=== PATIENT | male | born 1955 | race Caucasian/White ===

== ENCOUNTER 2016-06-30 14:43 | Inpatient (IN) | payer OTHER ==
[~2016-06-30] VITALS: Ht 177.8 cm; Wt 81.7 kg
[2016-06-30 15:45] VITALS: PULSE 55
[2016-06-30 15:52] VITALS: BP 135/83; PULSE 56; RESP 18; O2SAT 100
[2016-06-30] MEDS ORDERED: OMEG-38 PO (16:02)
[2016-06-30] MEDS ORDERED: GABA600T PO (16:02)
[2016-06-30] MEDS ORDERED: BUPR150T12 PO (16:02)
[2016-06-30] MEDS ORDERED: MULT1CAP33 PO (16:02)
[2016-06-30 16:51] VITALS: PULSE 56
[2016-06-30] MEDS ORDERED: Ondansetron 2 mg/mL 2 mL Inj IVPUSH PRN (16:55)
[2016-06-30] MEDS ORDERED: Polyethylene Glycol (PEG) 17 Gm Powder PO PRN (16:55)
[2016-06-30] MEDS ORDERED: Alum-Mag Hydrox-Simeth 30 mL Suspension PO PRN (16:55)
[2016-06-30] MEDS ORDERED: Heparin 25K Unit/500mL 0.45 NS 25,000 UNIT in IV Premix 1 EACH IV SCH (17:05)
[2016-06-30] MEDS ORDERED: Heparin 5,000 Unit/mL Inj IVPUSH PRN (17:05)
--- NOTE | 2016-06-30 17:45 | PCM.HPMED ---
Subjective Date of Service Jun 30, 2016 Primary Provider: Admitting Physician: Jennifer Bañuelos DO Primary Care Physician: Clem Cali MD Attending Physician: Jennifer Bañuelos DO Chief Complaint: NSTEMI Left arm pain History of Present Illness: Mr. Mckee is a pleasant 61-year-old gentleman who was transferred to [facility] from [facility] emergency department for further evaluation and treatment for NSTEMI. Patient says that at roughly 8 AM this morning his left arm started to ache, describing it as a muscle ache that increased in intensity, and did not go away with movement or self massage. He contacted EMS, they applied a nitroglycerin spray, which he says did not particularly help. He was given 4 baby aspirin, and taken to [facility] emergency room where he was found to have an elevated troponin without EKG changes. He denies any shortness of breath, lightheadedness, dizziness, or any pain over his chest or precordium. There is no tenderness in his arm, nor is there any tenderness in his chest. He has not had any nausea or vomiting, no diaphoresis. He does not notice color changes in his left arm. No fevers no recent illnesses, has not had any change in his normal activity, he did start taking Adderall couple of days ago which is a new medication for him, he did not take any today. This was prescribed to him to help his concentration after he had cryptococcal meningitis in the . On admission to [facility], he is asymptomatic, denies any pain. He works for [employer], since he leads an active life, used to be an avid runner, and now does works on a [employer] for exercise. He is a nonsmoker, weekly alcohol drinker, and denies any recreational drug use. He has been told in the past that he has "high lipids, but they are in good ratio "he tried Lipitor sometime in the s but caused him to have shortness of breath and has not been placed on any statins since. According to [facility] emergency department documentation EKG bradycardia, Q waves in lead 3, no other ST changes appreciated. Rate of 57 , CA 208, QRS 93, QTC 415. Infrequent PACs., Repeat EKG did not show substantial change. CMP: Blood glucose 103, creatinine 0.8, BUN 19, bicarbonate 30. Electrolytes normal. Liver enzymes normal, creatinine kinase normal. Initial troponin was negative, on recheck was elevated at 0.116 two hours later. CBC is unremarkable. Review of Systems: Comprehensive ROS negative unless stated in history of present illness Allergies Coded Allergies: diphenhydramine (Verified Allergy, Unknown, 06/30/16) hydroxyzine (Verified Allergy, Unknown, 06/30/16) Home Medications Multivitamin daily Suboxone 8 mg/2 mg 1-1/2 tab every day by mouth Ascorbic acid 500 mg by mouth twice a day Methocarbamol 750 mg up to 4 times a day as needed for muscle spasms by mouth Promethazine 25 mg by mouth every 6 hours as needed for nausea and vomiting Gabapentin 300 mg by mouth 3 times a day Cyclobenzaprine 10 mg by mouth 4 times a day as needed Review of her Norethin 150 mg by mouth twice a day Dextroamphetamine/amphetamine 10 mg by mouth twice a day Oxycodone 5 mg by mouth up to 4 hours as needed for pain PMH Multiple herniated disc in lower back Spinal stenosis Chronic bilateral knee pain Cryptococcus meningitis 1992 Surgical History Multiple discectomies and microdiscectomies, most recent in July 2013 Intrathecal reservoir and tubing placed in 1992, intrathecal reservoir removed, tubing remains. Carpal tunnel surgery right wrist 1999 Family History Mother lived to be 99 years old, no reported medical problems Father "butterfly glioma" at age 67, other medical conditions included diabetes and possibly alcoholism. 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 HEENT: Normocephalic, atraumatic, EOMI grossly, mucous membranes moist, conjunctiva pink, neck is supple without rigidity. No JVD, oropharynx without signs of inflammation Cardiovascular: Regular rhythm, bradycardic, no clicks murmurs rubs, peripheral pulses 2/4 equal bilaterally upper and lower extremities Pulmonary: Clear to auscultation bilaterally, no W/R/R. Abdominal: Soft to palpation, bowel sounds present 4, no hepatosplenomegaly. Negative rebound. Extremities: No edema appreciated. No tenderness, asymmetry. No tenderness, discoloration, or asymmetry or loss of function to left upper extremity. Neuro: Neurologically grossly intact, strength is equal bilaterally upper and lower extremities. Extraocular muscles intact, cranial nerves II through XII intact. MSK: Gait is normal, able to move extremities on their own volition, strength 5 out of 5 equal bilaterally to upper and lower extremities. Lymphatics: Cervical, axillary, inguinal nodes without adenopathy. Lab and Diagnostics Labs In paper chart, pertinent labs mentioned in history of present illness X-Rays, CTs and MRIs 1 view chest x-ray performed at [facility] on 06/30/2016 Impression: No acute pulmonary process. Dictated by Cindy Orozco M.D. On 06/30/2016 at 9:41 AM 12-lead ECG Per emergency room documentation from [facility] "Sinus bradycardia, patient has a Q-wave in lead 3, no other ST changes appreciated. Rate is 57, CA is 206, QRS is 93 and QTC is 415. Patient does not appear to have a PAC. No prior EKGs available." Assessment & Plan Mr. Mckee 61-year-old male with history of cryptococcus meningitis, back pain , and a reported history of hyperlipidemia, who was transferred to [facility] from [facility] emergency department ,after being found to have positive troponin, for NSTEMI evaluation and treatment. 1. Acute non-STEMI, present on admission, treatment initiated -Elevated troponin 0.116 from initially negative troponin. EKG reports do not state ST changes, or signs of infarct or ischemia. -Rechecked troponin on admission remained elevated, but trending down. -4 baby aspirin given to patient prior to presentation -Start heparin drip -ASA 81mg Daily -Plavix 300mg NOW and 75mg daily starting tomorrow. -HOLD Atorvastatin due to concerns for anaphylaxis given history of "hard to breath" when previously administered. -HOLD beta-zehra therapy for bradycardia. -Nitroglycerin 0.4 mg SL q5min PRN x3, -Echocardiogram ordered for the AM. -Cardiology has seen patient and consulting. Possible PCI tomorrow following echo. -NPO after midnight. 2. Chronic back and knee pain, present on admission, active -Not currently complaining of being in any pain -Restart patient's home medications, gabapentin, methocarbamol and cyclobenzaprine. 3. History of cryptococcus meningitis, present on admission, stable -Hold Adderall 4. Chronic depression, present on admission, stable -Continue bupropion Medication reconciliation -Restart patient's home medications once available in [facility] except those being held mentioned above. GI prophylaxis not indicated Pain management nitroglycerin, Tylenol, as needed, patient's home pain medications DVT prophylaxis: Heparin/Plavix/aspirin Inpatient status for anticipated length of stay greater than 2 midnights given acuity, complexity, and potential need for specialist intervention. Pain Evaluation: Adequate Pain Control GI Prophylaxis: Not indicated VTE Prophylaxis: Other (Heparin, clopidogrel) Resuscitation Status: CPR: Attempt Resuscitation Time spent 45 minutes Attending Statement The patient was seen and examined together with Dr. Guerra on 06/30/16 and I agree with the history, exam and plan as outlined in the note above. Toni Guerra DO Jun 30, 2016 17:45 Jennifer Bañuelos DO Jul 01, 2016 17:17
[2016-06-30 18:08] LABS: TROPONIN T 0.091 ug/L (0.0-0.011)
--- NOTE | 2016-06-30 18:11 | CONS ---
[address] [address] CONSULTATION REPORT PATIENT: SAMMY GAMING : 1955 MR#: [id number] ADMIT: 06/30/2016 JOB ID: [id number] DATE OF SERVICE: 06/30/2016 CHIEF COMPLAINT: I was asked by hospital team to consult on this patient given admission with [id number] [place]. HISTORY OF PRESENT ILLNESS: The patient is a 61-year-old man with past medical history significant for chronic back pain, also history of cryptococcal meningitis in 1992, who started to notice left arm aching this morning. This persisted and moved up to his shoulder area. It was not associated with chest pain, chest pressure, increased shortness of breath, diaphoresis, nausea, or vomiting. However, he decided to go to the ER. His initial troponin was negative. The second one has now come up positive. He did not have any acute EKG changes, and he is actually pain free at this time after a dose of morphine that was given to him about two or three hours ago. Prior to this, he is very active and exercises regularly. Denies any problems with chest pain, chest pressure, increased shortness of breath, arm pain, neck pain, or jaw pain. He denies any fevers, any history of orthopnea, PND, or lower extremity edema. PAST MEDICAL HISTORY AND PROBLEM LIST: 1. Cryptococcal meningitis in 1992 with some residual issues with focusing on projects. 2. Chronic back pain. 3. Knee pain. MEDICATIONS: At time of admission include: 1. MultiVites. 2. Suboxone. 3. Robaxin. 4. Promethazine. 5. Gabapentin. 6. Bupropion. 7. He has also started on Adderall about three weeks ago. 8. Oxycodone. ALLERGIES: 1. BENADRYL which makes him feel somewhat hyperkinetic, cannot stop moving. 2. HYDROXYZINE. SOCIAL HISTORY: No tobacco. Occasional alcohol. FAMILY HISTORY: No family history of early coronary disease. Brother has a pacemaker. Brother is older than him. REVIEW OF SYSTEMS: Overall health: No fevers, chills, night sweats, or weight loss. GI: No problems with ulcers or blood in his stool. : No dysuria, no hematuria. Pulmonary: No increased shortness of breath. Neuro: No history of chronic headaches or stroke but history of cryptococcal meningitis with some issues with focusing on tasks. Heme: No easy bruising or bleeding. Derm: No rash or skin breakdown. Endocrine: No heat or cold intolerance. Cardiac: As per HPI. Psych: No acute issues. ENT: No difficulty swallowing. Psych: No acute issues. All other review of systems of 12 point review of systems are negative. PHYSICAL EXAMINATION: Blood pressure 135/83, heart rate 56. General: In no acute distress. Speaking in full sentences without pressured breath. Head and neck exam: Normocephalic, atraumatic. Neck: No obvious JV distention. No carotid bruits appreciated. Heart: Regular rate and rhythm without murmurs, gallops, rubs appreciated. Lungs clear to auscultation anteriorly. Back: CVA tenderness to palpation. Abdomen: Soft, nontender. Extremities: Warm. No appreciable edema. 1+ distal pulses. Skin without breakdown appreciated. Neurologic: Alert and oriented x3. Gait is not tested. Psych: Appropriate mood affect. ENT: Mucous membranes moist. No erythema in the oropharynx. Ophtho vision grossly intact. DIAGNOSTIC DATA: EKG to my review shows sinus bradycardia, although I cannot find a full EKG. Labs show a troponin which is elevated to 0.116 as noted before. He is not anemic. Creatinine is fine. IMPRESSION: The patient had episode of arm pain, now elevated troponin consistent with a dpe-HP-twadaziay myocardial infarction. He has no pain at this time. PLAN/RECOMMENDATIONS: 1. I put him on a heparin drip. Continue aspirin. Given his low heart rate, I think we would have to be careful adding beta zehra on him, but this would be added if he develops any tachyarrhythmias. 2. Will keep him n.p.o. after midnight. Get an echocardiogram in the morning. A consideration for cardiac catheterization sometime this weekend. I have discussed the risks and benefits of cardiac catheterization if we were to proceed with this procedure. He understands the risks and benefits. He has no contraindications to stenting. 45 minutes was spent reviewing the patient's records, speaking with an examining the patient as well as communicating with the hospital team SIERRA
[2016-06-30] MEDS ORDERED: DEXM10CP6 PO (18:12)
--- NOTE | 2016-06-30 18:23 | NUR ---
Admit note Patient admitted to 2000 from [facility]. Patient A/O x 4, amb indep in room, steady gait. Patient c/o mild left arm ache that does not radiate. VSS, tele SB 50's 1 AVB. Patient oriented to call light, tv, phone, bathroom and poc. Declined Influenza vaccine. Med rec and admit done. Heparin gtt started per MD orders. Will cont poc.
[2016-06-30 21:19] VITALS: BP 117/71; PULSE 50; RESP 16; O2SAT 98
[2016-06-30] MEDS: buPROPion SR 150 mg ER12 Tablet PO SCH (21:31)
[2016-06-30 23:09] VITALS: BP 114/77; PULSE 50; RESP 20; O2SAT 95
[2016-07-01] VITALS (14 sets, daily range): BP systolic 106–135; BP diastolic 60–79; PULSE 46–64; RESP 10–20; O2SAT 97–98
[2016-07-01 05:34] LABS: BASOPHILS % (AUTO) 0.3 % (0-3); EOSINOPHILS % (AUTO) 1.2 % (0-5); MONOCYTES % (AUTO) 9.3 % (4-12); Mean Corpuscular Hemoglobin 30.4 pg (27.0-35.0); Mean Corpuscular Volume 91.7 fL (81-100); NEUTROPHILS % (AUTO) 57.8 % (40-74); Platelet Count 215 bil/L (150-400)
[2016-07-01 06:01] LABS: Magnesium 2.2 mg/dL (1.6-2.6)
--- NOTE | 2016-07-01 07:26 | NUR ---
Pain/NPO Pt c/o left arm pain 3-07/10 at approximately 0100. STAT EKG was ordered for chest pain. MD was notified of this episode and visited with pt. Pt now has nitro PRN in the EMAR for chest pain. Pt has been NPO since midnight.
--- NOTE | 2016-07-01 07:53 | NUR ---
Social Work Note: Screen Note Data & Assessment: EMR reviewed. Patient is a 61 year old male admitted on 06/30/16 for NSTEMI. Pt has [facility] for insurance coverage and sees Clem Cali MD for primary care. Pt lives in [place] with family and is independent at baseline. Pt is currently independent in her room. No discharge needs identified at this time. SW to continue to follow if any needs arise. Plan: Anticipated discharge home via POV when medically ready. No discharge needs identified at this time. SW to continue to follow if any needs arise. Vane Douglas, LEONARDA, ACM
[2016-07-01] MEDS: 0.9% Sodium Chloride 1,000 ML IV SCH ×2 (09:45→17:30)
[2016-07-01] MEDS ORDERED: Phenylephrine/NS-PF 100 mCg/mL 5 mL Syringe IVPUSH ONE (09:59)
[2016-07-01] MEDS ORDERED: Atropine 1 mg/10 mL (Code) Syringe ONE (09:59)
[2016-07-01] MEDS ORDERED: Heparin 1,000 Unit/mL 10 mL Inj ONE (09:59)
[2016-07-01] MEDS ORDERED: Nitroglycerin 50,000 mcg/250 mL D5W Premix IV ONE (09:59)
[2016-07-01] MEDS ORDERED: 0.9% Sodium Chloride 2,000 ML ONE (10:00)
--- NOTE | 2016-07-01 10:33 | NUR ---
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 Echo done. VSS, tele SB 40-60's. 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
[2016-07-01] MEDS ORDERED: HYDROcodone-APAP 5-325 mg Tablet PO PRN (12:00)
[2016-07-01] MEDS ORDERED: Sodium Chloride LOK Flush 10 mL Syringe IVFLUSH PRN (12:00)
[2016-07-01] MEDS ORDERED: Atropine 1 mg/10 mL (Code) Syringe IVPUSH PRN (12:00)
[2016-07-01] MEDS ORDERED: 0.9% Sodium Chloride 250 ML BOLUS IV PRN (12:00)
[2016-07-01] MEDS ORDERED: 0.9% Sodium Chloride 400 ML (4 HRS) IV ONE (12:00)
[2016-07-01] MEDS ORDERED: Ondansetron 2 mg/mL 2 mL Inj IVPUSH PRN (12:00)
[2016-07-01] MEDS: buPROPion SR 150 mg ER12 Tablet PO SCH ×2 (14:00→21:17)
[2016-07-01] MEDS: Omega-3 Fatty Acids 1,000 mg Capsule PO SCH ×2 (14:01→21:17)
--- NOTE | 2016-07-01 15:19 | PCM.PNMED ---
Subjective Date of Service Jul 01, 2016 Subjective Overnight patient experienced a recurrence of left arm pain. Again described as muscle ache but did not go away. He was given an extra bolus of heparin which she said resolved the pain over the course of an hour. EKG taken at the time did not show any appreciable change from previous. At time of examination this morning he was once again completely asymptomatic. ROS mclean-negative Exam Vital Signs Vital Sign - Last Date Time Temp Pulse Resp B/P Pulse Ox O2 Delivery O2 Flow Rate FiO2 07/01/16 13:45 60 11 135/71 07/01/16 11:50 36.7 98 Room Air Intake and Output 06/30/16 06/30/16 07/01/16 Cumulative From/Thru 15:00 23:00 07:00 06/30/16 17:28 - 07/01/16 06:11 Intake Total 641 ml 641 ml Output Total 1850 ml 1850 ml Balance -1209 ml -1209 ml Intake Oral 400 ml 400 ml IV Total 241 ml 241 ml Output Urine Total 1850 ml 1850 ml # Voids 2 2 Exam General: Laying in bed, no apparent distress. HEENT: Normocephalic, atraumatic, EOMI grossly, mucous membranes moist, conjunctiva pink, neck is supple without rigidity. No JVD, oropharynx without signs of inflammation Cardiovascular: Regular rhythm, bradycardic, no clicks murmurs rubs, peripheral pulses 2/4 equal bilaterally upper and lower extremities Pulmonary: Clear to auscultation bilaterally, no W/R/R. Abdominal: Soft to palpation, bowel sounds present 4, no hepatosplenomegaly. Negative rebound. Extremities: No edema appreciated. No tenderness, asymmetry. No tenderness, discoloration, or asymmetry or loss of function to left upper extremity. Neuro: Neurologically grossly intact, strength is equal bilaterally upper and lower extremities. Extraocular muscles intact, cranial nerves II through XII intact. MSK: Gait is normal, able to move extremities on their own volition, strength 5 out of 5 equal bilaterally to upper and lower extremities. Lymphatics: Cervical, axillary, inguinal nodes without adenopathy. IVs and Medications Medications Reviewed: Medications were reviewed in detail Lab and Diagnostics Result Diagram: 07/01/1651907/01/16519 X-Rays, CTs and MRIs 1 view chest x-ray performed at [facility] on 06/30/2016 Impression: No acute pulmonary process. Dictated by Cindy Orozco M.D. On 06/30/2016 at 9:41 AM 12-lead ECG Per emergency room documentation from [facility] "Sinus bradycardia, patient has a Q-wave in lead 3, no other ST changes appreciated. Rate is 57, AR is 206, QRS is 93 and QTC is 415. Patient does not appear to have a PAC. No prior EKGs available." Cardiac Echo Impressions Complete echocardiogram performed 07/01/2016: Interpretation Summary 1. Normal left ventricular size, wall thickness and systolic function with an estimated EF of 55 to 60% 2. Upper limits of normal right ventricular size with normal systolic function. 3. No valvular pathology appreciated There is no old study for comparison Assessment & Plan Mr. Mckee 61-year-old male with history of cryptococcus meningitis, back pain , and a reported history of hyperlipidemia, who was transferred to [facility] from [facility] emergency department ,after being found to have positive troponin, for NSTEMI evaluation and treatment. 1. Acute non-STEMI, present on admission, ongoing -On admit Elevated troponin 0.116 from initially negative troponin. EKG tracings do not show ST changes, or signs of infarct or ischemia. -Rechecked troponin this a.m. and had increased daily 500% -Underwent catheterization:No abnormalities seen. -Echocardiogram:Normal. -ASA 81mg Daily -Plavix 300mg on admission and 75mg daily. -STOP heparin drip due to negative catheterization -HOLD Atorvastatin due to concerns for anaphylaxis given history of "hard to breath" when previously administered. -HOLD beta-zehra therapy for bradycardia. -Nitroglycerin 0.4 mg SL q5min PRN x3, -Heart healthy diet. NOT diabetic, A1c is normal. 2. Chronic back and knee pain, present on admission, active -Not currently complaining of being in any pain -Restart patient's home medications, gabapentin, methocarbamol and cyclobenzaprine. Tylenol as needed. 3. History of cryptococcus meningitis, present on admission, stable -Hold Adderall 4. Chronic depression, present on admission, stable -Continue bupropion GI prophylaxis not indicated Pain management nitroglycerin, Tylenol, as needed, patient's home pain medications DVT prophylaxis: Heparin/Plavix/aspirin Disposition: Postop rehabilitation tonight, continues to monitor for unstable angina, Likely discharge home tomorrow with follow-up for cardiology and with primary care doctor. No barriers to discharge, no additional foreseeable needs at discharge. Pain Evaluation: Adequate Pain Control GI Prophylaxis: Not indicated VTE Prophylaxis: Other (Heparin, clopidogrel) Resuscitation Status: CPR: Attempt Resuscitation Time spent 30 minutes Attending Statement The patient was seen and examined together with Dr. Guerra on 07/01/16 and I have added additional information to the note above. Toni Guerra DO Jul 01, 2016 15:19 Jennifer Bañuelos DO Jul 01, 2016 17:22
--- NOTE | 2016-07-01 16:13 | DRSVH ---
[facility] [address] [place] [address] Echocardiogram Report Name: SAMMY GAMING Gaudencio e: 07/01/2016 Height: 70 in Hospital Exam Location: [facility] Weight: 181 lb Gender: Male BSA: 2.0 m2 : 1955 Age: 61 yrs BP: 122/78 mmHg Reason For Study: NSTEMI Ordering Physician: HOSPITALIST [facility] Performed By: Lele Tatum Referring Physician: Paul STEWART Interpretation Summary 1. Normal left ventricular size, wall thickness and systolic function with an estimated EF of 55 to 60% 2. Upper limits of normal right ventricular size with normal systolic function. 3. No valvular pathology appreciated There is no old study for comparison Procedure: A two-dimensional transthoracic echocardiogram with color flow and Doppler was performed. The study quality was technically good. There is no prior echocardiogram noted for this patient. The patient was in normal sinus rhythm during the exam. Left Ventricle: The left ventricle is normal in size. There is normal left ventricular wall thickness. The ejection fraction is estimated to be 55-60%. Possible mild inferoapical hypokinesis. Right Ventricle: Borderline right ventricular enlargement. The right ventricular systolic function is normal. Atria: There is mild biatrial enlargement. No color doppler evidence for an ASD. Mitral Valve: The mitral valve is normal in structure and function. There is trace mitral regurgitation. Aortic Valve: The aortic valve is trileaflet. The aortic valve opens well. No aortic regurgitation is present. Tricuspid Valve: The tricuspid valve is normal in structure and function. There is mild tricuspid regurgitation. The right ventricular systolic pressure is estimated at 25 mmHg assuming a right atrial pressure of 3 mm Hg. Pulmonic Valve: The pulmonic valve is normal in structure and function. There is no pulmonic valvular regurgitation. Great Vessels: The aortic root is normal size. The dimensions of the ascending aorta are normal. The pulmonary artery is normal size. The IVC is of normal diameter and collapses greater than 50% with a sniff. This suggests a low right atrial pressure of 3 mm Hg. Pericardium/ Pleura There is no pericardial effusion. There is no pleural effusion. MMode/2D Measurements & Calculations LVIDd: 5.3 cm LA dimension: 3.3 cm RA long axis Ao root diam LVIDs: 3.7 cm FS: 29.9 % LA A2 area: 22.9 cm RA area Aortic Jxn: 2.5 cm EPSS: 0.33 cm LA A4 area: 20.5 cm asc Aorta Diam IVSd: 0.69 cm LA length (vol) : 19.9 cm LVPWd: 0.76 cm RA vol Ao Arch Diam (Prox LA vol: 72.9 ml : 68.9 ml Trans): 3.1 cm LA vol index RA : 34.4 mm2 IVC diam: 1.8 cm LV trevino. diameter/BSA LV sys. diameter/BSA RVD1 (basal) RVD2 (mid): 3.8 cm (cm/m^2): 2.7 (cm/m^2): 1.9 Doppler Measurements & Calculations MV E max anjel MV E/A: 1.2 TR max anjel MV dec time : 48.4 cm/sec Med Peak E' Anjel : 236.8 cm/sec : 0.21 sec MV A max anjel TR max PG : 38.9 cm/sec E/E' med: 6.7 : 22.4 mmHg Pulm A Revs Dur: 0.12 secPA V2 max MV A dur: 0.14 sec : 81.0 cm/sec PA mean PG PA Accel Time PA V2 mean Pulm A Revs Dur - MV A : 59.3 cm/sec Dur: -0.02 msec PA pr(Accel) : 26.6 mmHg Reading Physician:04:13 PM
--- NOTE | 2016-07-01 16:38 | NUR ---
Post cath Patient returned to the room at 1145, right groin site soft no bruising or hematoma. Bilat pedal pulses weak but palpable. VSS, tele SB 40-50's. Patient off bedrest at 1545, but has not been oob yet. Taking diet well. Will cont poc.
--- NOTE | 2016-07-01 17:27 | PCM.ADCARE ---
Advance Care Planning Note Purpose of Encounter: To understand the goals of care and patient's wishes for treatment Parties in Attendance: Jennifer Bañuelos DO Decisional Capacity: Good Subjective: Current Diagnosis: NSTEMI Plan: Patient's current diagnosis was discussed today with the patient. The patient currently would still like to be full code including CPR and mechanical ventilation. CODE STATUS: Full code Time Spent Adv.Care Plannin minutes Jennifer Bañuelos DO Jul 01, 2016 17:27
--- NOTE | 2016-07-01 18:29 | CS94 ---
[place] [id number] DIAGNOSTIC CARDIAC CATHETERIZATION PATIENT: SAMMY GAMING : 1955 MR#: [id number] ADMIT: 06/30/2016 JOB ID: [id number] SERVICE DATE: 07/01/2016 PROCEDURES PERFORMED: Left heart catheterization with coronary angiography. INDICATIONS: A 61-year-old man presents with [id number] ID. DESCRIPTION OF PROCEDURE: Informed consent was obtained. Patient brought to the label stamper. Bilateral groins were prepped and draped in usual fashion. The area over the right femoral artery was anesthetized with lidocaine. Using modified Seldinger technique, a 5-Gabonese sheath was advanced. Next, a 5-Gabonese JL4 catheter was advanced over a wire and used to cannulate the left coronary artery and angiographic views obtained. This catheter was removed over a wire and a 5-Gabonese JR4 catheter was advanced over a wire and used to cannulate the right coronary. Angiographic views view obtained. This catheter was removed and a 5-Gabonese angled pigtail catheter was advanced to the left ventricle under fluoroscopic guidance. Left ventricular pressure tracings were obtained and following pullback, aortic pressure tracings were obtained. The case was ended. Angiography of the right femoral access site was reviewed prior to achieving hemostasis with manual compression. There were no complications. FINDINGS: Coronaries: Left main. This has no significant plaque. There is a tortuous angulation prior to giving rise to the circumflex artery and the left anterior descending artery. The left anterior descending artery continues down, has significant tortuosity down and from the mid to the apical segment but has no evidence of obstructive disease. There is a diagonal branch which has a number of branches and supplies at least an intermediate distribution of the lateral wall. It has some mild ostial narrowing in the range of 20%. Circumflex artery: This vessel is also very tortuous in anatomy but there is no evidence for obstructive disease. It gives rise to a first obtuse marginal branch which is relatively small in caliber without obstructive lesions. The continuation of the circumflex artery also gives rise to two terminal branches, again without evidence of obstructive disease. Right coronary artery. This vessel has no evidence of obstructive disease. Its distal segments are also quite tortuous but there is no evidence for obstructive lesions appreciated. An ostial assessment shows no evidence of anomalous circumflex artery or ostial stenosis. Left ventricular pressure is 10 mm (post contrast, no gradient on pullback). IMPRESSION: 1. No evidence for obstructive coronary lesions to explain the patient's elevated troponin. 2. End-diastolic pressure 10 mm (post-contrast) and no gradient on pullback. MTDD
[2016-07-02 00:36] VITALS: BP 117/73; PULSE 53; RESP 16; O2SAT 97
[2016-07-02 03:04] VITALS: BP 105/65; PULSE 52; RESP 16; O2SAT 98
[2016-07-02 05:08] VITALS: PULSE 47
[2016-07-02] MEDS: 0.9% Sodium Chloride 1,000 ML IV SCH (05:45)
--- NOTE | 2016-07-02 06:25 | NUR ---
Groin Site Pt has been OOB with frequency. Pt's groin site remains soft and only slightly tender when palpated. Pt has pedal pulses bilaterally that are weak to palpation.
[2016-07-02 08:26] VITALS: BP 134/80; PULSE 56; RESP 16; O2SAT 100
[2016-07-02 08:27] VITALS: PULSE 53
[2016-07-02] MEDS: Omega-3 Fatty Acids 1,000 mg Capsule PO SCH (08:32)
[2016-07-02] MEDS: buPROPion SR 150 mg ER12 Tablet PO SCH (08:33)
[2016-07-02 08:49] VITALS: PULSE 53
[2016-07-02] MEDS ORDERED: CLOP75TA3 PO (10:43)
--- NOTE | 2016-07-02 10:48 | PCM.DIMED ---
Discharge Instructions Date of Service Jul 02, 2016 Dates of Hospitalization Jun 30, 2016 at 15:38 Discharge Diagnosis Discharge Diagnosis N STEMI Chronic back pain Chronic depression History of cryptococcus meningitis stable Medication Instructions He has been prescribed Plavix for the next 30 days because you had a cardiac catheterization. Please take Plavix daily and wants a prescription has run out he may not needed in the future but please follow-up with cardiology in regards to this. Diet Heart Healthy Activity Other (gradually return to normal daily activities. Please stay home today and tomorrow and to not return to work until July 04) Call your provider Fever or Chills, Shortness of breath, Chest pain, Weakness (unilateral) Patient Instructions Follow-up Provider: Clem Cali MD Follow-up with PCP in: 1 week (if an appointment has not already been made his call to schedule an appointment) Provider: Lynne Wolfe MD Follow-up in: 2 weeks (please follow up in 2-[address] Sparrow if you do not hear from her office please give them a call for follow-up appointment) Jennifer Bañuelos DO Jul 02, 2016 10:48
--- NOTE | 2016-07-02 12:24 | PROG NOTE ---
[address] [address] PROGRESS NOTE PATIENT: SAMMY GAMING : 1955 MR#: [id number] ADMIT: 06/30/2016 JOB ID: [id number] DATE: 07/02/2016 CHIEF COMPLAINT: The patient came in with a non STEMI. Cardiac catheterization did not reveal any obstructive lesions. Echocardiogram showed overall normal LV systolic function. Question of possible mild hypokinesis seen in the inferior apical segment, but this was only seen in limited views. SUBJECTIVE: He is doing well. He denies arm pain, chest pain, shortness of breath although he has not walked around the halls as yet. Telemetry shows no arrhythmias. In speaking with him further, he said he has been having quite a bit of stress with his job, which he is now transitioning out of. This may have been a source of his current problems. It is unclear. He has been on Adderall for at least three weeks, so I am not certain that this had anything to do with his current presentation. Current medications include Plavix 75 a day, aspirin 81 mg a day, bupropion 150 mg b.i.d., gabapentin 600 mg q.h.s. He should be off heparin. PHYSICAL EXAMINATION: Heart rate is in the high 40s to low 50s. Blood pressure 134/80. Sats 100% on room air. Afebrile. General: No acute distress. Speaking in full sentences without pressured breath. Head and neck exam: Normocephalic, atraumatic. Neck: No obvious JV distention. Heart: Regular rate and rhythm without murmurs, gallops, rubs appreciated. Lungs sound clear. Back: No CVA tenderness to palpation. Abdomen is soft. Extremities warm. Good distal pulses. LABORATORIES: Show an H and H of 14.2, 42.8. Chemistry is pending. HDL cholesterol 76, LDL 102. Echo as noted. IMPRESSION: The patient is status post cardiac catheterization for elevated troponin. No obstructive lesions were identified. This is felt then to be a microvascular phenomenon, a possible stress mediated cardiomyopathy although the LV function is normal, and only on one isolated view was there a possibility of apical inferior wall hypokinesis. He is doing well. No arrhythmias on telemetry. PLAN: 1. I have asked him to get around and walk around the halls, make sure he feels well without any chest pain, arm pain, other concerning symptoms. 2. I would continue on aspirin and Plavix for a month and I will see him within that time period. 3. He would like to return to work next week. If he feels well today, he could take Sunday off and go back to work as planned. The only restrictions would be heavy lifting for the next 4-5 days because of the groin access. 20 minutes was spent discussing the cath findings with the patient and examining him. I also communicated my recommendations to the hospital team KARLENED
--- NOTE | 2016-07-02 12:54 | PCM.DC.MED ---
Discharge Summary Date of Service Jul 02, 2016 Dates of Hospitalization Date of Hospital Admission Jun 30, 2016 at 15:38 Date of Discharge: Jul 02, 2016 Providers: Admitting Physician: Jennifer Bañuelos DO Primary Care Physician: Clem Cali MD Attending Physician: Jennifer Bañuelos DO Diagnosis at Time of Discharge Diagnosis at Time of Discharge N STEMI Chronic back pain Chronic depression History of cryptococcus meningitis stable Consultations Case and follow up plan was discussed in depth with Dr. Wolfe of Cardiology Procedures XRay, CTs & MRIs 1 view chest x-ray performed at [facility] on 06/30/2016 Impression: No acute pulmonary process. Dictated by Cindy Orozco M.D. On 06/30/2016 at 9:41 AM ECG 12 Lead Per emergency room documentation from [facility] "Sinus bradycardia, patient has a Q-wave in lead 3, no other ST changes appreciated. Rate is 57, CO is 206, QRS is 93 and QTC is 415. Patient does not appear to have a PAC. No prior EKGs available." Cardiac Echo Impression Complete echocardiogram performed 07/01/2016: Interpretation Summary 1. Normal left ventricular size, wall thickness and systolic function with an estimated EF of 55 to 60% 2. Upper limits of normal right ventricular size with normal systolic function. 3. No valvular pathology appreciated There is no old study for comparison Invasive Procedures Cardiac catheterization that was performed on 07/01/2016: IMPRESSION: 1. No evidence for obstructive coronary lesions to explain the patient's elevated troponin. 2. End-diastolic pressure 10 mm (post-contrast) and no gradient on pullback. Brief History Mr. Mckee is a pleasant 61-year-old gentleman who was transferred to [facility] from [facility] emergency department for further evaluation and treatment for NSTEMI. Patient says that at roughly 8 AM this morning his left arm started to ache, describing it as a muscle ache that increased in intensity, and did not go away with movement or self massage. He contacted EMS, they applied a nitroglycerin spray, which he says did not particularly help. He was given 4 baby aspirin, and taken to [facility] emergency room where he was found to have an elevated troponin without EKG changes. He denies any shortness of breath, lightheadedness, dizziness, or any pain over his chest or precordium. There is no tenderness in his arm, nor is there any tenderness in his chest. He has not had any nausea or vomiting, no diaphoresis. He does not notice color changes in his left arm. No fevers no recent illnesses, has not had any change in his normal activity, he did start taking Adderall couple of days ago which is a new medication for him, he did not take any today. This was prescribed to him to help his concentration after he had cryptococcal meningitis in the . On admission to [facility], he is asymptomatic, denies any pain. He works for [employer], since he leads an active life, used to be an avid runner, and now does works on a SET for exercise. He is a nonsmoker, weekly alcohol drinker, and denies any recreational drug use. He has been told in the past that he has "high lipids, but they are in good ratio "he tried Lipitor sometime in the but caused him to have shortness of breath and has not been placed on any statins since. According to [facility] emergency department documentation EKG bradycardia, Q waves in lead 3, no other ST changes appreciated. Rate of 57 , CO 208, QRS 93, QTC 415. Infrequent PACs., Repeat EKG did not show substantial change. CMP: Blood glucose 103, creatinine 0.8, BUN 19, bicarbonate 30. Electrolytes normal. Liver enzymes normal, creatinine kinase normal. Initial troponin was negative, on recheck was elevated at 0.116 two hours later. CBC is unremarkable. Hospital Course Mr. Mckee 61-year-old male with history of cryptococcus meningitis, back pain , and a reported history of hyperlipidemia, who was transferred to [facility] from [facility] emergency department ,after being found to have positive troponin, for NSTEMI evaluation and treatment. The patient was admitted for elevated troponins with a troponin of 0.09 and 0.116. The patient had an echo showing an EF of 55-60% on 07/01/2016. The patient was then taken to the [facility] and found to have no coronary artery disease. The patient's left arm pain could be secondary to stress or it could be secondary to a reaction from Adderall which is a new medication the patient has recently started taking. At this time the patient will be given a one- month dose of Plavix as he recently underwent a cardiac cath. The patient will follow up with Dr. Wolfe with cardiology in 2-4 weeks. 1. Acute non-STEMI, present on admission, ongoing -On admit Elevated troponin 0.116 from initially negative troponin. EKG tracings do not show ST changes, or signs of infarct or ischemia. -Rechecked troponin this a.m. and had increased daily 500% -Underwent catheterization:No abnormalities seen. -Echocardiogram:Normal. -ASA 81mg Daily -Plavix 300mg on admission and 75mg daily. -STOP heparin drip due to negative catheterization -HOLD Atorvastatin due to concerns for anaphylaxis given history of "hard to breath" when previously administered. -HOLD beta-zehra therapy for bradycardia. -Nitroglycerin 0.4 mg SL q5min PRN x3, -Heart healthy diet. NOT diabetic, A1c is normal. 2. Chronic back and knee pain, present on admission, active -Not currently complaining of being in any pain -Restart patient's home medications, gabapentin, methocarbamol and cyclobenzaprine. Tylenol as needed. 3. History of cryptococcus meningitis, present on admission, stable -Hold Adderall 4. Chronic depression, present on admission, stable -Continue bupropion GI prophylaxis not indicated Pain management nitroglycerin, Tylenol, as needed, patient's home pain medications DVT prophylaxis: Heparin/Plavix/aspirin Disposition: Postop rehabilitation tonight, continues to monitor for unstable angina, Likely discharge home tomorrow with follow-up for cardiology and with primary care doctor. No barriers to discharge, no additional foreseeable needs at discharge. Exam Vital Signs (Last) Date Time Temp Pulse Resp B/P Pulse Ox O2 Delivery O2 Flow Rate FiO2 07/02/16 08:49 53 07/02/16 08:26 36.5 16 134/80 100 Room Air Exam Physical Exam: GEN: Patient was awake, alert, responding appropriately to questions HEENT: PERRLA, EOMI, Neck soft supple, trachea midline, nomocephalic/atraumatic CV: +S1/S2, RRR, no murmur auscultated Respiratory: CTAB, no wheezes, rales, rhonchi GI: +bowel sounds x4, soft, compressible, non TTP EXT: no c/c/e Neuro: CN II-XII grossly intact Psych: mood and affect were appropriate Test 06/30/16 17:18 07/01/16 05:20 07/02/16 08:40 Hemoglobin A1c 5.5% (4.8-5.6) Triglycerides Level 84mg/dL (0-149) Cholesterol Level 195mg/dL (100-199) LDL Cholesterol, Calculated 102.200mg/dL (0-99) VLDL Cholesterol 16.800mg/dL HDL Cholesterol 76mg/dL (>39) Cholesterol/HDL Ratio 2.57 (0.0-4.4) White Blood Count 7.7th/mm3 (3.8-10.1) Red Blood Count 4.21mil/mm3 (4.40-5.80) Mean Corpuscular Volume 91.7fL (81-100) Mean Corpuscular Hemoglobin 30.4pg (27.0-35.0) Mean Corpuscular Hemoglobin Concent 33.2% (32.0-37.0) Red Cell Distribution Width 12.3% (12.3-15.4) Platelet Count 215bil/L (150-400) Neutrophils (%) (Auto) 57.8% (40-74) Lymphocytes (%) (Auto) 31.3% (14-46) Monocytes (%) (Auto) 9.3% (4-12) Eosinophils (%) (Auto) 1.2% (0-5) Basophils (%) (Auto) 0.3% (0-3) Activated Partial Thromboplast Time 87.8sec (22.8-33.0) Magnesium Level 2.2mg/dL (1.6-2.6) Total Bilirubin 0.2mg/dL (0.0-1.2) Aspartate Amino Transf (AST/SGOT) 39U/L (0-50) Alanine Aminotransferase (ALT/SGPT) 15U/L (0-44) Alkaline Phosphatase 70U/L (25-160) Troponin T 0.590ug/L (0.0-0.011) Total Protein 6.7g/dL (6.4-8.4) Albumin 3.6g/dL (3.4-5.0) Hemoglobin 14.2g/dL (13.8-17.2) Hematocrit 42.8% (41.0-50.0) Sodium Level 140mEq/L (134-144) Potassium Level 4.6mEq/L (3.5-5.2) Chloride Level 99mEq/L (97-108) Carbon Dioxide Level 28mmol/L (18-29) Blood Urea Nitrogen 15mg/dL (6-24) Creatinine 0.85mg/dL (0.76-1.27) Estimat Glomerular Filtration Rate 98mL/min (>59) Glucose Level 118mg/dL (60-99) Calcium Level 9.7mg/dL (8.5-10.1) Discharge Medications Discharge Medications Bupropion ER (Bupropion ER) 150 Mg Tablet.er 150 MG PO BID (Reported) Clopidogrel Bisulfate (Plavix) 75 Mg Tablet 75 MG PO DAILY Prescribed by: JENNIFER BAÑUELOS DO Gabapentin (Neurontin) 600 Mg Tablet 600 MG PO HS (Reported) Multivitamin (Multivitamins) 1 Each Capsule 1 EACH PO BID (Reported) [place]-3/Dha/Epa/Fish Oil (Fish Oil 1,000 mg Softgel) 1 Each Capsule 1 EACH PO BID (Reported) Additional med instructions He has been prescribed Plavix for the next 30 days because you had a cardiac catheterization. Please take Plavix daily and wants a prescription has run out he may not needed in the future but please follow-up with cardiology in regards to this. Followup Plan Disposition: Discharged home in stable condition Discharge Diet: Heart Healthy Discharge Activity: Other (gradually return to normal daily activities. Please stay home today and tomorrow and to not return to work until Sunday, July 04) Follow-up Provider: Clem Cali MD Follow-up with PCP in: 1 week (if an appointment has not already been made his call to schedule an appointment) Provider: Lynne Wolfe MD Follow-up in: 2 weeks (please follow up in 2-[address] Sparrow if you do not hear from her office please give them a call for follow-up appointment) Time spent Greater than 35 minutes copies to: Clem Cali MD, Precious L DO Jul 02, 2016 10:49
--- NOTE | 2016-07-02 13:00 | NUR ---
Discharge note Patient a/o x 4, denies pain, nausea or sob. Patient oob amb indep steady gait. Right groin site soft no hematoma or bruising bilat pedal pulses weak but palpable. VSS, tele SB. Patient given discharge instructions, medication reconciliation, info on diagnosis and prescriptions. All questions answered. IV SL and tele removed intact. Patient amb to car with all belongings and discharged home with .
--- NOTE | 2016-07-02 13:12 | NUR ---
Social Work Note: Discharge Data& Assessment: EMR reviewed. Per pt is medically ready to discharge home via POV. SW met with pt and pt at bedside to confirm discharge plan and assess for any unmet needs. Maikol Fernandez is a 61 year old male admitted on 06/30/2016 for NSTEMI. Per pt is medically improved and ready for discharge. Pt is ambulating in his room and in the halls independently. Pt and pt deny any other needs. Pt to transport home. No other discharge needs identified. Plan: Per pt is medically ready to discharge home via POV. Pt and pt deny any other needs. No other discharge needs identified. CEZAR Riggs
[2016-09-12] MEDS ORDERED: BUPR1FIL3 SL (08:43)
[2016-09-12] MEDS ORDERED: PRA20 PO (08:43)
[2016-09-12] MEDS ORDERED: METH750T3 PO (08:43)
[2016-09-12] MEDS ORDERED: OXYC5TAB72 PO (08:43)
[2016-09-12] MEDS ORDERED: CYCL10TA9 PO (08:43)
== END 2016-07-02 12:40 | disposition home or self-care (01) | DRG 282 ==
LOC: PCC 15:38
PROVIDERS: ADMIT Neuromusculoskeletal Medicine & OMM; ATTEND Neuromusculoskeletal Medicine & OMM
PROC: B211YZZ Fluoroscopy of Multiple Coronary Arteries using Other Contrast (ICD-10-PCS; principal; 2016-07-01)
PROC: 4A023N7 Measurement of Cardiac Sampling and Pressure, Left Heart, Percutaneous Approach (ICD-10-PCS; 2016-07-01)
DX: I21.4 Non-ST elevation (NSTEMI) myocardial infarction (principal); M54.9 Dorsalgia, unspecified; M25.569 Pain in unspecified knee; F32.9 Major depressive disorder, single episode, unspecified; Z86.61 Personal history of infections of the central nervous system

== ENCOUNTER 2016-09-13 10:21 | Day surgery (SDC) | payer OTHER ==
[2016-09-13] VITALS (10 sets, daily range): BP systolic 96–132; BP diastolic 63–81; PULSE 46–56; RESP 1–17; O2SAT 97–100
[~2016-09-13] VITALS: Ht 177.8 cm; Wt 83.0 kg
[~2016-09-13 10:21] MED LIST: BUPR150T12 PO; BUPR1FIL3 SL; CYCL10TA9 PO; CeFAZolin Inj 2 GM in IV Premix 1 EACH IV ONE; GABA600T PO; Lactated Ringer's 1,000 ML IV SCH; METH750T3 PO; OXYC5TAB72 PO; PRA20 PO
[2016-09-13] MEDS ORDERED: fentaNYL-PF 50 mCg/mL 2 mL Inj ONE (10:22)
[2016-09-13] MEDS ORDERED: Ondansetron 2 mg/mL 2 mL Inj ONE (10:22)
[2016-09-13] MEDS ORDERED: Propofol 10,000 mCg/mL 20 mL Inj ONE (10:22)
[2016-09-13] MEDS ORDERED: Dexamethasone 4 mg/mL Inj ONE (10:22)
[2016-09-13] MEDS ORDERED: CeFAZolin 2 Gm/50 mL D5W Duplex Bag IV ONE (10:28)
[2016-09-13] MEDS: Lactated Ringer's 1,000 ML IV SCH ×2 (11:21→11:30)
[2016-09-13] MEDS ORDERED: HYDROmorphone 1 mg/mL Inj IVPUSH PRN (11:55)
[2016-09-13] MEDS ORDERED: fentaNYL-PF 50 mCg/mL 2 mL Inj IVPUSH PRN (11:55)
[2016-09-13] MEDS ORDERED: Dexamethasone 4 mg/mL Inj IVPUSH PRN (11:55)
[2016-09-13] MEDS ORDERED: Lactated Ringer's 1,000 ML IV SCH (11:55)
[2016-09-13] MEDS ORDERED: Phenylephrine 10,000 mCg/mL Inj IVPUSH PRN (11:55)
[2016-09-13] MEDS ORDERED: Lactated Ringer's 500 ML IV PRN (11:55)
[2016-09-13] MEDS ORDERED: EPHEDrine Sulfate 50 mg/mL Inj IVPUSH PRN (11:55)
[2016-09-13] MEDS ORDERED: Ondansetron 2 mg/mL 2 mL Inj IVPUSH PRN (11:55)
[2016-09-13] MEDS ORDERED: MetoCLOpramide 5 mg/mL 2 mL Inj IVPUSH PRN (11:55)
--- NOTE | 2016-09-13 11:55 | PCM.HPANE ---
Patient Data Date of Service: Sep 13, 2016 (0285) Surgeon Admitting Provider: Attending Provider:Ronaldo Capellan MD Primary Care Physician:Clem Cali MD Other Provider:Arun Cohen Anesthesia Reason for Visit Right Knee Meniscal Tear Ht/WT & BMI Height (Feet): 5 Height (Inches): 10.00 Weight (Kilograms): 83.000 Body Mass Index 26.00 Allergies Coded Allergies: diphenhydramine (Verified Allergy, Unknown, UNKNOWN, 09/12/16) hydroxyzine (Verified Allergy, Unknown, UNKNOWN, 09/12/16) Past Anesthesia History Anesthesia History: Denies:: Anesthesia Reactions, Malignant Hyperthermia Diabetes History Hx Diabetes?: Yes MRSA MRSA: No Medications Home Meds Incl Beta Ke: No Reported Medications Buprenorphine HCl/Naloxone HCl (Suboxone 8 mg-2 mg Sl Film)1 Each Film1 Each SL DAILY Ref 0 09/12/16 Pravastatin (Pravachol)20 Mg [id number] Mg PO HS Ref 0 09/12/16 oxyCODONE 5 Mg Tablet5 Mg PO Q6H PRN For Pain Ref 0 09/12/16 Methocarbamol 750 Mg [id number] Mg PO Q4H PRN For Spasm Ref 0 09/12/16 Cyclobenzaprine 10 Mg [id number] Mg PO TID PRN Spasm 09/12/16 Gabapentin (Neurontin)600 Mg [id number] Mg PO HS 30 Days Ref 0 06/30/16 Bupropion ER 150 Mg Tablet.er150 Mg PO BID Ref 0 06/30/16 Discontinued Reported Medications [place]-3/Dha/Epa/Fish Oil (Fish Oil 1,000 mg Softgel)1 Each Capsule1 Each PO BID 06/30/16 Multivitamin (Multivitamins)1 Each Capsule1 Each PO BID 06/30/16 Discontinued Scripts Clopidogrel Bisulfate (Plavix)75 Mg [place]30 Mg PO DAILY #30 TABLET Ref 0 Prov:Jennifer Bañuelos DO 07/02/16 History History of ENT Problems?: Yes HEENT History: Denies:: Abnormal Airway Denture Type: None Teeth Condition: Within Normal Limits Other HEENT Pertinent History: S/P TONSILLECTOMY,WISDOM TEETH EXTRACTIONS X2 Hx of Heart Problems?: Yes Cardiovascular History: Positive for:: Cardiac Surgery (S/P HEART CATH 2016 WNL) Coronary Artery Disease (NSTEMI) Denies:: Heart Murmur (ECHO 07/2016 EF 55-60%) Hypertension (HYPERLIPIDEMIA) Irregular Heartbeat Hx of Respiratory Problem?: Yes Respiratory History: Positive for:: Dyspnea (STEELE) Denies:: Use of C-PAP Machine Hx Neurologic Problems?: Yes Other Neurological Pertinent: HX OF CRYPTOCOCCAL MENINGITIS 1992 W/ RESIDUAL ISSUES FOCUSING ON PROJECTS Hx of GI Problems?: Yes Other GI Pertinent History: S/P APPY Hx of Problems?: Yes Genitourinary History: Positive for:: Kidney Stones (S/P CYSTO/STENT/STONE BASKET) Male Hx: Denies:: Prostate Problems Scrotal Mass Testicular Surgery Skin History: Denies:: History Skin Disorders? Hx Musculoskeletal Problems?: Yes Musculoskeletal History: Positive for:: Back Injury (C/OF CHRONIC BACK PAIN/ SPINAL STENOSIS) Musculoskeletal Trauma (RT KNEE MENISCAL TEASR=CURRENT PROBLEM) Denies:: Joint Replacement Hx of Psycho/Social Problems?: No Hx Surgeries?: Yes (back surgery x 4, bore biopsy, inthrathecial reservior) Hx Any Other Health Problems?: Yes Other History: Positive for:: Hospitalization (NSTEMI) Denies:: Cancer Endocrine Disease History Blood Transfusions: Denies:: Blood Transfusions Hx Diabetes: Yes Hx Alcohol Use: Yes (1 glass of wine a week)Hx Substance Use: Yes (HX OF ABUSE -ON SUBOXONE) Smoking Status: Never Smoker Have You Smoked inLast 12 mo: No Stop/Bang S-Snoring: Do You Snore Loudly: No T-Tired: feel tired, fatigued: No O-Obsered: Observed not breath: No P-Blood Pressure: treated: No B- Body Mass Index > 35 kg/m2: No A- Age over 50: Yes N- Neck Large Circumference: No G- Gender Male: Yes JOHN Total Score: 2 JOHN Risk Assessment: Low Risk, <3 Yes Risk Assessment Category Category 1A: Patient has history of documented sleep apnea, and HAS NOT received any narcotic, sedative or anesthesia administration during this stay. Category 1B: Patient has history of documented sleep apnea, and HAS received any narcotic , sedative or anesthesia administration during this stay Category 2: Patient has SUSPECTED Obstructive Sleep Apnea, and HAS received any narcotic , sedative or anesthesia administration during this stay. Category 3: Patient has SUSPECTED Obstructive Sleep Apnea and HAS NOT received narcotic, sedative or anesthesia administration during this stay. Category 4: Outpatient in Procedural Areas with known sleep apnea or who screen positive for High Risk via the STOP/BANG questionnaire. Exam Exam Vital Signs Vital Signs Date Time Temp Pulse Resp B/P Pulse Ox O2 Delivery O2 Flow Rate FiO2 09/13/16 10:37 36.0 55 15 132/80 100 Room Air General Appearance: Alert, Oriented X3, Cooperative HEENT/AIRWAY: MP 1 Lungs: Clear to Auscultation Heart: Exam Unremarkable Meds/Labs/Diagnostics Admission Meds Current Medications Lactated Ringer's (Lr) 1,000 ml @ 120 mls/hr Q8H20M IV Last administered on t 11:21; Start 09/13/16 at 05:00; Stop 09/13/16 at 05:00; Status DC Plan Impression Patient chart reviewed, patient interviewed and anesthestic plan with risks, benefits, and alternatives discussed, and informed consent obtained. ASA Physical Status: ASA2 Mod Systemic Disease Anesthetic Plan: GA Bene/Risks/Altern/Consents: Yes HP Complete Prior to Induction: Yes Sudarshan Akbar MD Sep 13, 2016 11:55
[2016-09-13] MEDS ORDERED: oxyCODONE-Acetamin 5-325 mg Tablet PO PRN (12:00)
[2016-09-13] MEDS ORDERED: Ketorolac 15 mg/mL Inj IVPUSH ONE (12:00)
--- NOTE | 2016-09-13 12:04 | PCM.ORTHOP ---
Orthopedic Operative Report Date of Service: Sep 13, 2016 (0107) Pre Operative Diagnosis Right knee medial meniscus tear, chondromalacia Post Operative Diagnosis Right knee medial meniscus tear, lateral meniscus tear, chondral malacia Procedure Right knee arthroscopy, partial meniscectomy, partial lateral meniscectomy, chondroplasty, partial synovectomy Surgeon Surgeon: Ronaldo Capellan MD Assistants: None Indication for Procedure Right knee medial meniscus tear Findings Per dictation Details of Procedure INDICATIONS: Maikol Fernandez is a 61 year old male who has had a history of right knee pain with mechanical symptoms. The patient has failed conservative management. X-rays show the tibiofemoral joints to be preserved with mild to moderate DJD. MRI was obtained which reveals medial meniscus tear and chondromalacia. The patient has had persistent symptoms and is now brought to the operating room for arthroscopy. The risks, benefits, and alternatives of surgery were discussed with the patient. The risks included but were not limited to infection, bleeding, damage to vessels and nerves, loss of motion, continued pain, re-tear of the meniscus, deep venous thrombosis, and complications due to anesthesia including nerve injury, myocardial infarction, stroke, , etc. The patient stated understanding of the nature of the surgical procedure and gave written and verbal consent to proceed. PROCEDURE: The patient was brought to the operating room and placed supine on the operating room table. After the administration of general anesthesia the patient was placed in the supine position. Examination of the knee revealed no evident instability with a trace effusion. All prominences were padded with appropriately and neurovascular structures protected. The right knee was confirmed to be the appropriate site following surgical time out. The right lower extremity was examined under anesthesia. Range of motion was 0-135 degrees. There was no varus or valgus or anterior or posterior instability. The right lower extremity was then prepped and draped in the usual fashion. Sterile prep and drape was then undertaken of the knee. The knee joint was injected with 20 ccs of 1% Lidocaine, along with 3 ccs of 1 % lidocaine in the medial and lateral portal sites respectively. A standard anterolateral parapatellar stab wound was created. The knee joint was entered with a blunt- tipped obturator, followed by the 30-degree video arthroscope. An anteromedial portal was established under arthroscopic control. A routine arthroscopic survey was performed. The patellofemoral joint showed grade 2/3 chondromalacia which was debrided down to stable tissue with a shaver. The medial joint space was then entered. The articular surfaces showed grade 2/ 3 chondromalacia. A degenerative radial medial meniscal tear was noted with a small flap. The shaver and the cutting instruments were inserted, and a debridement of the meniscus back to healthy tissue was then undertaken. The ACL and PCL were noted to be intact. The lateral joint space was then entered. The articular surfaces were intact with grade 2/3 chondromalacia. There was a degenerative tear to the posterior horn near the root of the lateral meniscus. A combination of the shaver and cutting instruments were then inserted and a debridement of this tissue down to stable tissue was undertaken. Moderate synovitis was noted anteriorly in the medial and lateral compartment and debrided with a shaver. The knee was irrigated with an additional 2 liters of lactated Ringer's solution. Excess fluid was drained. The portals were closed with 3-0 nylon as well as xeroform. The knee was injected with 20 mL of 0.5% ropivacaine. A dry sterile dressing was applied, followed by an LUIS ARMANDO hose, soft roll, and AVINASH bandage. The patient was awakened in the operating room and transported to the recovery room in satisfactory condition. The patient appeared to tolerate the procedure well. At the completion of surgery the patient had soft compartments , palpable pulses, and brisk capillary refill. There were no complications noted. Please keep dressing clean dry and intact. Do not remove dressing until follow- up in clinic. If the dressing become soaked, you may remove the outer gauze and placed Band-Aids on the wounds. You may weight-bear as tolerated and maintain motion of your knee by bending it daily. You will follow up in clinic in 10-14 days for suture removal, and placement of new Steri-Strips. You will follow-up with me in clinic, and we will start physical therapy if needed. You will follow-up with me at 6 weeks postop and 12 weeks postop and will be released after that if improved. Please keep the affected extremity elevated when possible. Please take aspirin as prescribed . You may use ice and/ or heat as needed for comfort. (preferably ice during the first 48-72 hours) Please feel free to call with any further questions, comments, and/or concerns. Grafts, Implants: None Complications There were no periprocedural complications identified. Condition Stable Anesthetic Administered: GA Catheters: None Output, Estimated Blood Loss: 5 Blood Admin during surgery: No Surgical Cast or Splint: Other Surgical Specimen Removed: No Specimen sent to Pathology: No copies to: Ronaldo Capellan MD, Christopher L MD Sep 13, 2016 12:04
[2016-09-13] MEDS ORDERED: Ropivacaine-PF 0.5% 30 mL Inj INFILTRATE ONE (12:24)
--- NOTE | 2016-09-13 12:49 | PCM.ANEP1 ---
Post Anesthesia PACU Phase 1 Assessment Vital Signs 110/68, 48, 12, 36.0, 100% Vital Signs Date Time Temp Pulse Resp B/P Pulse Ox O2 Delivery O2 Flow Rate FiO2 09/13/16 10:37 36.0 55 15 132/80 100 Room Air Anesthetic Administered: GA Level of Alertness: Sleepy, easy to arouse NOVAK's with Equal Strength: Yes Pain: No Nausea or Vomiting: No CV Function & Hydration Stable: Yes Airway Device: NONE Oxygen Delivery: Simple Mask Lungs: Clear to Auscultation Dermatome Level: Full Sensation Summary UNEVENTFUL GA PACU Phase 2 Assessment Complications: No Follow up Care: No Patient Instructions Provided: N/A Sudarshan Akbar MD Sep 13, 2016 12:49
== END 2016-09-13 23:59 | disposition home or self-care (01) ==
LOC: SAS 10:21
PROVIDERS: ATTEND Orthopaedic Surgery
DX: M23.303 Other meniscus derangements, unspecified medial meniscus, right knee (principal); M23.351 Other meniscus derangements, posterior horn of lateral meniscus, right knee; M22.41 Chondromalacia patellae, right knee; M65.861 Other synovitis and tenosynovitis, right lower leg; I21.4 Non-ST elevation (NSTEMI) myocardial infarction; Z79.02 Long term (current) use of antithrombotics/antiplatelets
CPT/HCPCS: 29880; J0690; J1100; J1170; J1885; J2250; J2405; J2795; J3010; J7120